=== PATIENT | female | born 1955 | race Caucasian/White ===

== ENCOUNTER 2019-09-10 16:23 | Inpatient (IN) ==
[2019-09-10] MEDS ORDERED: SODIUM CHLORIDE 0.9% 1,000 ML IV STA (17:22)
[2019-09-10 18:28] LABS: Basophils % 1.4 % (0.0-0.8); Eosinophils % 1.4 % (0.00-10.9); Hematocrit 50.2 VOL% (35.7-47.0); Hemoglobin 17.2 GM/DL (12.0-16.0); Lymphocytes # 0.1 10*3/uL (1.4-4.0); Lymphocytes % 15.7 % (21.3-54.2); Mean Corpuscular HGB Conc 34.3 GM/DL (32-36); Mean Corpuscular Volume 97.5 FL (87-102); Mean Platelet Volume 12.8 FL (9.6-12.0); Monocytes % 4.3 % (1.7-12.7); NRBC # 0.07 10*3/uL; Neutrophils % 77.2 % (38.7-73.9); Platelet Count 59 T/CUMM (130-400); Red Blood Count 5.15 MC/CUMM (3.8-5.5); Red Cell Distribution Width 14.6 % (9.3-17.3)
[2019-09-10 18:36] LABS: White Blood Count 0.7 T/CUMM (4-12)
[2019-09-10 18:48] LABS: Albumin 2.4 G/DL (3.4-5.0); Bilirubin,Total 0.9 MG/DL (0.2-1.0); Calcium 8.4 MG/DL (8.5-10.1); Osmolality,Calculated 264.5 MOS/KG (273-304)
[2019-09-10] MEDS ORDERED: POTASSIUM CHLORIDE 20 MEQ TABLET PO STA (18:50)
[2019-09-10 18:57] LABS: Eosinophils 2 % (0-10); Lymphocytes 14 % (20-55); Segmented Neutrophils 80 % (50-85); Total Cells Counted 100
[2019-09-10 18:58] LABS: Platelet Estimate Decreased; Polychromasia 1+
[2019-09-10] MEDS ORDERED: FILGRASTIM-SNDZ 300 MCG/0.5 ML SYRINGE SUBCUT ONE (19:13)
[2019-09-10] MEDS ORDERED: ENOXAPARIN 100 MG/ML SYRINGE SUBCUT STA (19:17)
[2019-09-10 19:33] LABS: ABG Base Excess 2.8 MMOL/L (-2.5-2.5); ABG HCO3 26.9 MMOL/L (20-26); ABG PCO2 26.5 MM HG (35-48); ABG PH 7.567 (7.35-7.45); ABG TCO2 21.8 MMOL/L (23-27)
[2019-09-10] MEDS ORDERED: ALTEPLASE 2 MG VIAL ONE ×2 (20:02→21:15)
[2019-09-10] MEDS ORDERED: ETOMIDATE 20 MG/10 ML VIAL IV ONE ×2 (20:14→20:16)
[2019-09-10] MEDS ORDERED: VECURONIUM 10 MG VIAL IV ONE (20:14)
[2019-09-10] MEDS ORDERED: VECURONIUM 10 MG VIAL IV STA (20:17)
[2019-09-10] MEDS ORDERED: LIDOCAINE 1% 20 ML VIAL ONE (20:23)
[2019-09-10] MEDS ORDERED: SODIUM CHLORIDE 0.9% 1,000 ML IV SCH ×3 (20:30→20:56)
[2019-09-10 20:35] VITALS: BP 134/78
[2019-09-10] MEDS ORDERED: ALTEPLASE 12 MG in SODIUM CHLORIDE 0.9% 240 ML IV SCH ×2 (20:45→20:56)
[2019-09-10] MEDS ORDERED: HEPARIN DRIP 25,000 UNITS/500 ML PREMIX IV SCH ×2 (21:30)
[2019-09-10] MEDS ORDERED: POTASSIUM CHLORIDE RIDER 10 MEQ in PREMIX 1 EACH IV PRN (21:53)
[2019-09-10] MEDS ORDERED: PANTOPRAZOLE 40 MG VIAL IV SCH (22:00)
[2019-09-10] MEDS ORDERED: ALBUTEROL 2.5 MG/3 ML NEB RESP TX PRN (22:01)
[2019-09-10] MEDS ORDERED: ALPRAZolam 0.25 MG TABLET PO PRN (22:01)
[2019-09-10] MEDS ORDERED: DIPHENOXYLATE/ATROPINE 2.5-0.025 MG TABLET PO PRN (22:01)
[2019-09-10] MEDS ORDERED: LORATADINE PSEUDOEPHEDRINE PO PRN (22:01)
[2019-09-10] MEDS ORDERED: PROMETHAZINE 25 MG/1 ML VIAL IM PRN (22:01)
[2019-09-10] MEDS ORDERED: ONDANSETRON 4 MG/2 ML VIAL IV PRN (22:01)
[2019-09-10] MEDS ORDERED: NEOMYCIN/POLYMYXIN/HC OTIC SOLN 10 ML BOTTLE BOTH EARS SCH (22:01)
[2019-09-10 22:29] LABS: Basophils % 0.6 % (0.0-0.8); Eosinophils % 0.6 % (0.00-10.9); Hematocrit 29.2 VOL% (35.7-47.0); Hemoglobin 9.6 GM/DL (12.0-16.0); Immature Granulocytes % 0.6 %; Immature Granulocytes Absolute 0.01 #; Lymphocytes # 0.2 10*3/uL (1.4-4.0); Lymphocytes % 12.4 % (21.3-54.2); Mean Corpuscular HGB Conc 32.9 GM/DL (32-36); Mean Corpuscular Volume 102.1 FL (87-102); Mean Platelet Volume 12.9 FL (9.6-12.0); Monocytes % 2.8 % (1.7-12.7); NRBC # 0.05 10*3/uL; Platelet Count 80 T/CUMM (130-400); Red Blood Count 2.86 MC/CUMM (3.8-5.5); Red Cell Distribution Width 14.2 % (9.3-17.3); White Blood Count 1.8 T/CUMM (4-12)
[2019-09-10 22:31] LABS: INR 1.2; PT Patient Result 12.9 SECS (9.8-11.9)
[2019-09-10 22:40] LABS: Blood Urea Nitrogen 13 MG/DL (7-18); Calcium 7.9 MG/DL (8.5-10.1); Estimated Glom Filtration Rate 103 ML/MIN; Glucose 302 MG/DL (74-106); Osmolality,Calculated 278.2 MOS/KG (273-304)
[2019-09-10 22:45] LABS: INR 1.4; PT Patient Result 14.2 SECS (9.8-11.9)
[2019-09-10 22:53] LABS: ABG HCO3 20.3 MMOL/L (20-26); ABG Oxygen Saturation 96.4 % (95-100); ABG PCO2 50.9 MM HG (35-48); ABG PH 7.253 (7.35-7.45); ABG TCO2 20.8 MMOL/L (23-27); Allen Test Positive; Pt O2 Delivery Device Ventilator
[2019-09-10 23:05] LABS: Apearance,Urine CLEAR (Clear); Bilirubin,Urine Negative (Negative); Blood, Urine Negative (Negative); Glucose,Urine (UA) Negative (Negative); Ketones,Urine 20 mg/dL (Negative); Nitrite,Urine Negative (Negative); Protein,Urine Negative; RBC,Urine 4 /HPF (0-4); Squamous Epithelial Cell,Urine Occasional /HPF (0-10); Urine Color Yellow (Yellow); Urine Specific Gravity > 1.060 (1.001-1.035); Urine Urobilinogen < 2.0 EU/DL (0.2-1.0); WBC,Urine 1 /HPF (0-6)
[2019-09-10] MEDS ORDERED: dilTIAZem Drip 125 MG/125 ML PREMIX IV SCH (23:30)
[2019-09-11 00:44] LABS: Band Neutrophils 5 % (0-10); Lymphocytes 11 % (20-55); Nucleated Red Blood Cells 3 (0-5); Segmented Neutrophils 83 % (50-85); Total Cells Counted 100
[2019-09-11 00:45] LABS: Anisocytosis Slight; Platelet Estimate Decreased
[2019-09-11] MEDS ORDERED: LACTATED RINGERS 1,000 ML IV ONE (01:15)
[2019-09-11 01:19] LABS: ABG Base Excess -12.9 MMOL/L (-2.5-2.5); ABG HCO3 17.4 MMOL/L (20-26); ABG PCO2 58.3 MM HG (35-48); ABG PO2 113.4 MM HG (80-95); ABG TCO2 19.2 MMOL/L (23-27); Allen Test Positive; Pt O2 Delivery Device Ventilator
[2019-09-11 01:21] LABS: ABG Oxygen Saturation 96.3 % (95-100)
[2019-09-11 01:22] LABS: ABG PH 7.093 (7.35-7.45)
[2019-09-11] MEDS ORDERED: VECURONIUM 10 MG VIAL IV ONE (01:40)
[2019-09-11] MEDS ORDERED: ROCURONIUM 500 MG in SODIUM CHLORIDE 0.9% 500 ML IV PRN (01:55)
[2019-09-11] MEDS ORDERED: PHENYLEPHRINE DRIP 40 MG/250 ML PREMIX IV ONE (03:14)
[2019-09-11] MEDS: PHENYLEPHRINE DRIP 40 MG/250 ML PREMIX IV PRN ×3 (03:15→07:15)
[2019-09-11] MEDS ORDERED: NOREPINEPHRINE 16 MG in SODIUM CHLORIDE 0.9% 234 ML IV PRN (03:46)
[2019-09-11] MEDS ORDERED: NOREPINEPHRINE 4 MG/4 ML VIAL IV ONE (03:48)
[2019-09-11 03:57] LABS: ABG Base Excess -10.8 MMOL/L (-2.5-2.5); ABG HCO3 15.8 MMOL/L (20-26); ABG Oxygen Saturation 94.7 % (95-100); ABG TCO2 22.3 MMOL/L (23-27)
[2019-09-11] MEDS ORDERED: MEROPENEM 2,000 MG in SODIUM CHLORIDE 0.9% 100 ML IV SCH (04:00)
[2019-09-11] MEDS: SODIUM CHLORIDE 0.9% 1,000 ML IV SCH ×2 (04:06→06:32)
[2019-09-11 04:17] LABS: ABG PCO2 92.8 MM HG (35-48)
[2019-09-11 04:36] LABS: Basophils % 0.7 % (0.0-0.8); Eosinophils % 0.7 % (0.00-10.9); Hematocrit 26.1 VOL% (35.7-47.0); Hemoglobin 8.1 GM/DL (12.0-16.0); Immature Granulocytes Absolute 0.15 #; Lymphocytes # 0.2 10*3/uL (1.4-4.0); Mean Corpuscular Volume 108.3 FL (87-102); Mean Platelet Volume 12.2 FL (9.6-12.0); Monocytes % 4.7 % (1.7-12.7); NRBC # 0.32 10*3/uL; Neutrophils % 71.9 % (38.7-73.9); Red Blood Count 2.41 MC/CUMM (3.8-5.5); Red Cell Distribution Width 14.2 % (9.3-17.3); White Blood Count 1.5 T/CUMM (4-12)
[2019-09-11 04:41] LABS: INR 1.5; PT Patient Result 15.9 SECS (9.8-11.9)
[2019-09-11 04:42] LABS: Calcium 7.3 MG/DL (8.5-10.1); Osmolality,Calculated 278.8 MOS/KG (273-304)
[2019-09-11] MEDS ORDERED: SODIUM BICARBONATE 50 MEQ/50 ML VIAL IV ONE (04:44)
[2019-09-11 04:47] LABS: Platelet Count 81 T/CUMM (130-400)
[2019-09-11] MEDS ORDERED: SODIUM BICARB INJ 150 MEQ in STERILE WATER INJ 1,000 ML IV SCH (05:00)
[2019-09-11 05:53] LABS: Band Neutrophils 10 % (0-10); Eosinophils 1 % (0-10); Hypochromasia Slight; Lymphocytes 14 % (20-55); Nucleated Red Blood Cells 16 (0-5); Platelet Estimate Decreased; Segmented Neutrophils 72 % (50-85); Total Cells Counted 100
[2019-09-11] MEDS ORDERED: LORazepam 2 MG/1 ML VIAL IV PRN (07:24)
[2019-09-11] MEDS ORDERED: MORPHINE 4 MG/1 ML VIAL IV PRN (07:24)
[2019-09-11] MEDS ORDERED: VANCOMYCIN INJ 2,000 MG in SODIUM CHLORIDE 0.9% 500 ML IV ONE (08:00)
[2019-09-11] MEDS ORDERED: NEOMYCIN/POLYMYXIN/HC OTIC SOLN 10 ML BOTTLE BOTH EARS SCH (09:00)
[2019-09-11] MEDS ORDERED: FILGRASTIM-SNDZ 300 MCG/0.5 ML SYRINGE SUBCUT SCH (09:00)
[2019-09-11] MEDS ORDERED: VANCOMYCIN INJ 1,250 MG in SODIUM CHLORIDE 0.9% 250 ML IV SCH (20:00)
== END 2019-09-11 09:37 | disposition expired | DRG 208 ==
LOC: N.ED 16:23 → SUATTDRO 19:48 → N.EDINP 19:48 → N.ICU 21:52
PROVIDERS: ADMIT Internal Medicine; ATTEND Internal Medicine